=== PATIENT | male | born 1970 | race Caucasian/White ===

== ENCOUNTER → 2020-12-29 11:36 | Outpatient (CLI) | payer OTHER, SELFPAY ==
[2020-12-29 12:51] LABS: Cholesterol 221 mg/dL (140-199); HDL Cholesterol 86 mg/dL (40-60); LDL Cholesterol Calculated 119 mg/dL (<100); Triglycerides 82 mg/dL (35-150)
[2020-12-29 13:21] LABS: Prostate Specific Antigen Scrn 0.882 ng/mL (0.1-4.0)
[2020-12-29 13:39] LABS: Vitamin B12 269 pg/mL (239-931)
[2020-12-29 17:08] LABS: Vitamin D 25 Hydroxy (D3) 19.3 ng/mL (30.0-100.0)
== END ==
PROVIDERS: PCP Student in an Organized Health Care Education/Training Program; Referring Provider Student in an Organized Health Care Education/Training Program; Visit Provider Student in an Organized Health Care Education/Training Program
DX: Z13.220 Encounter for screening for lipoid disorders (principal); E55.9 Vitamin D deficiency, unspecified; Z12.5 Encounter for screening for malignant neoplasm of prostate; G62.9 Polyneuropathy, unspecified
CPT/HCPCS: 36415; 80061; 82306; 82607; G0103

== ENCOUNTER → 2021-03-13 09:52 | Outpatient (CLI) | payer OTHER, SELFPAY ==
[2021-03-13 10:43] LABS: COVID19 -Nasal RAPID Negative (Negative)
== END ==
PROVIDERS: PCP Student in an Organized Health Care Education/Training Program; Visit Provider Surgery
DX: Z20.822 Contact with and (suspected) exposure to COVID-19 (principal)
CPT/HCPCS: 87635; C9803

== ENCOUNTER 2021-03-16 08:57 | Day surgery (SDC) | payer OTHER, SELFPAY ==
[2021-03-16] MEDS: LACTATED RINGERS 1,000 ML 200 ML IV (09:17)
[2021-03-16 09:18] VITALS: BP 144/80; PULSE 65; RESP 18; TEMP 36.4; O2SAT 100; BMI 24.3
--- NOTE | 2021-03-16 10:20 | PM.HP.1 ---
History of Present Illness History of Present Illness Date Patient Seen: 03/16/21 Time Patient Seen: 10:20 Chief complaint: SDC Narrative: The patient presents for colorectal sreening. They have never had any previous examination for such. No personal or family history of colon cancer. On further history denies any recent gastrointestinal symptoms. No nausea, vomiting, abdominal pain, loss of appetite, unexplained weight loss, change in bowel habits, diarrhea, constipation, melena, hematochezia, or bright red blood per rectum. Patient History Medical History Abrasion of lower extremity with infection Family & Social History Social History: household members significant other Tobacco & Substance use: Smoking Status Former smoker alcohol intake current alcohol intake frequency 0-2 drinks per day Substance Use Type does not use Meds Home Medications and Allergies Home Medications Medication Instructions Recorded Confirmed Type No Known Home Medications 04/03/20 03/16/21 History Allergies Allergy/AdvReac Type Severity Reaction Status Date / Time No Known Drug Allergies Allergy Verified 03/16/21 09:15 Review of Systems Review of Systems ROS: Yes All systems reviewed with the patient and are negative except as otherwise documented Exam Vital Signs (past 8 hours): - 03/16/21 09:18 Temperature 97.5 F L Pulse Rate 65 Respiratory Rate 18 Blood Pressure 144/80 H Pulse Oximetry 100 Oxygen Delivery Method Room Air Narrative Exam Narrative: GENERAL-well developed adult male, no acute distress HEENT-no scleral icterus, hearing intact NECK-no JVD, trachea midline CVS- regular rate, no peripheral edema RESP-unlabored respiratory effort, no audible wheezing GI-soft, nontender nondistended MSK-no cyanosis or clubbing, extremities without deformity SKIN-warm, dry NEURO-alert and oriented, no focal deficits PYSCH-Appropriate mood and affect Assessment & Plan Assessment & Plan narrative: The patient requires colorectal screening and colonoscopy is recommended. Technical details were discussed. Risks, benefits, alternatives explained. Risks including but not limited to myocardial infarction, aspiration, bleeding, pain, missed lesion, incomplete examination, need for further radiographic studies, colonic perforation, and need for major abdominal surgery were discussed. All questions were answered to their satisfaction, and they are in agreement with this plan.
[2021-03-16] MEDS: fentaNYL 250 MCG/5 ML INJ IV (10:34)
[2021-03-16] MEDS: MIDAZOLAM 5 MG/5 ML VIAL IV (10:34)
--- NOTE | 2021-03-16 10:43 | PM.OP.ENDO ---
Operative Date/Time/Diagnoses Date of procedure: 03/16/21 Time of procedure: 10:43 Pre-op diagnosis: screening colonoscopy Post-op diagnosis: same Procedure & Clinicians Study performed: colonoscopy Same procedure as scheduled: Yes Indications: screening Surgeon: Mio Cervantes Procedure Notes Procedure in detail: Medications: Conscious sedation using 8mg IV midazolam and 200mcg IV of fentanyl The history and physical was performed/updated and the patient is ASA class is 1. The procedure was discussed in detail with the patient. Potential risks complications including infection, bleeding, missed diagnosis, perforation, need for surgery, and were explained. Their questions were answered and informed consent was obtained. Patient was brought to the procedure room and placed standard monitoring equipment. The patient's vital signs were monitored continuously throughout the entire procedure. Prior to starting time-out was performed. The patient was placed in the left lateral recumbent position. Procedural sedation was administered. Examination began with a thorough inspection of the perianal area there was no evidence of fissures, fistulae, external hemorrhoids or cutaneous malignancy. The colonoscopy scope was then placed into the anal canal and was advanced to the cecum, which was identified by the ileocecal valve, the appendiceal orifice and the confluence of the taenia. The scope was then slowly withdrawn examining colon thoroughly in all directions, irrigating it of any residual stool. FINDINGS 1. Normal healthy colon 2. No masses or polyps The patient tolerated the procedure well. They will be discharged once criteria are met. The prep was of good/excellent quality. The withdrawl time was 6 minutes. The sedation time was 18 minutes. Specimen(s): none sent Complications: none Impression: normal colonoscoy Post-procedure Recommendations: Colonscopy in 10 years Disposition: same day surgery
[2021-03-16 10:45] VITALS: BP 110/69; PULSE 58; RESP 10; TEMP 36.2; O2SAT 97
--- NOTE | 2021-03-16 10:46 | SUR.PHASEI ---
Received to PACU after colonoscopy with sedation. Report from JOSEY Sagastume.
[2021-03-16 10:50] VITALS: BP 101/64; PULSE 56; RESP 10; O2SAT 97
[2021-03-16 10:55] VITALS: BP 106/63; PULSE 57; RESP 12; O2SAT 99
[2021-03-16 11:00] VITALS: BP 114/73; PULSE 65; RESP 12; TEMP 36.4; O2SAT 98
[2021-03-16 11:07] VITALS: BP 121/70; PULSE 70; RESP 12; TEMP 36.4; O2SAT 99
== END 2021-03-16 11:16 | disposition home or self-care (01) ==
PROVIDERS: PCP Student in an Organized Health Care Education/Training Program; Referring Provider Surgery; Visit Provider Surgery
PROC: 0DJD8ZZ Inspection of Lower Intestinal Tract, Via Natural or Artificial Opening Endoscopic (ICD-10-PCS; CPT 45378; principal; 2021-03-16 10:00)
DX: Z12.11 Encounter for screening for malignant neoplasm of colon (principal)
CPT/HCPCS: 45378; 99152; J2250; J3010

== ENCOUNTER → 2024-01-18 08:20 | Outpatient (CLI) | payer OTHER, SELFPAY ==
[2024-01-18 09:07] LABS: Add Manual Diff / Slide Review NO; Basophils Absolute Auto 100 /uL (0-100); Basophils Percent Auto 2.2 % (0-2); Eosinophils Absolute Auto 300 /uL (0-450); Eosinophils Percent Auto 7.3 % (2-4); Hematocrit 45.1 % (41-53); Hemoglobin 15.5 g/dL (13.5-17.5); Lymphocytes Absolute Auto 1200 /uL (1100-4500); Lymphocytes Percent Auto 27.8 % (25-40); Mean Corpuscular HGB Conc 34.5 % (30-36); Mean Corpuscular Hemoglobin 30.4 PG (26-34); Mean Corpuscular Volume 88.2 fL (80-100); Monocytes Absolute Auto 500 /uL (0-900); Monocytes Percent Auto 12.1 % (3-14); Neutrophils Absolute Auto 2200 /uL (1500-7000); Neutrophils Percent Auto 50.6 % (50-75); Platelet Count 151 X10^3/uL (150-400); Red Blood Cell Count 5.11 X10^6/uL (4.5-5.9); Red Cell Distribution Width 13.5 % (11.6-14.8); White Blood Cell Count 4.4 X10^3/uL (4.5-11.0)
[2024-01-18 09:33] LABS: Alanine Aminotransferase 23 IU/L (<50); Albumin 4.5 g/dL (3.5-5.0); Albumin Globulin Ratio 1.8 (1.0-2.8); Alkaline Phosphatase 54 U/L (38-126); Aspartate Aminotransferase 30 IU/L (17-59); BUN Creatinine Ratio 15.9 (6-22); Bilirubin Total 0.8 mg/dL (0.2-1.3); Blood Urea Nitrogen 14 mg/dL (9-20); Calcium 9.1 mg/dL (8.4-10.2); Carbon Dioxide 28 mmol/L (22-32); Chloride 105 mmol/L (98-107); Cholesterol 220 mg/dL (140-199); Estimated Glomerular Filt Rate > 60 mL/min (>60); Globulin 2.5 g/dL (1.7-4.1); Glucose 109 mg/dL (70-100); HDL Cholesterol 89 mg/dL (40-60); HEMOLYSIS < 15 (0-50); LDL Cholesterol Calculated 113 mg/dL (<100); Potassium 4.7 mmol/L (3.4-5.1); Sodium 137 mmol/L (137-145); Triglycerides 89 mg/dL (35-150)
[2024-01-18 09:43] LABS: Vitamin D 25 Hydroxy (D3) 19.5 ng/mL (30.0-100.0)
[2024-01-18 09:56] LABS: TSH w/ Reflex to FT4 1.33 uIU/mL (0.47-4.68)
== END ==
PROVIDERS: PCP Family Medicine; Referring Provider Family Medicine; Visit Provider Family Medicine
DX: E78.2 Mixed hyperlipidemia (principal); E55.9 Vitamin D deficiency, unspecified; R00.2 Palpitations
CPT/HCPCS: 36415; 80053; 80061; 82306; 84443; 85025

== ENCOUNTER → 2024-01-20 08:15 | Outpatient (CLI) | payer OTHER, SELFPAY | LOC: RESP 08:16 | PROVIDERS: PCP Family Medicine; Referring Provider Family Medicine; Visit Provider Family Medicine | DX: R00.2 Palpitations (principal) | CPT/HCPCS: 93005; 93010 ==

== ENCOUNTER → 2024-03-07 13:43 | Outpatient (CLI) | payer OTHER, SELFPAY | LOC: CAR 13:44 | PROVIDERS: PCP Family Medicine; Referring Provider Family Medicine; Visit Provider Family Medicine | DX: R00.2 Palpitations (principal) | CPT/HCPCS: 93242 ==

== ENCOUNTER → 2024-08-27 07:42 | Outpatient (CLI) | payer OTHER, SELFPAY ==
--- NOTE | 2024-08-27 | DI.ECHO.S_ITS ---
[place] +---------+ Hospital : : [address] : : [place] : : [id number] : : Phone: [phone] Echocardiogram Report + + :Name: TAYA ELLINGTON Study Date: 08/27/2024 Height: 75 in : :Hospital ReadingLocation: Weight: 200 lb : : Gender: Male BSA: 2.2 m2 : :: 1970 Age: 54 yrs BP: 128/86 mmHg: :Reason For Study: FAMILY HISTORY OF ISCHEMIC HEART DISEASE : :Ordering Physician: WENDY PRINCE Performed By: aMry Guzman : :Referring: WENDY PRINCE : + + Interpretation Summary 1. The left ventricular contractility is mildly compromised. Estimate ejection fraction is approximately 45 to 50% with mild global hypokinesis. No LVH. Normal diastolic function. 2. The right ventricle contractility is normal. 3. Mild right ventricular enlargement. All other cardiac chambers are of normal size. 4. No significant valvular abnormalities noted. 5. No obvious intracardiac shunts. 6. No obvious intracardiac masses nor thrombi. 7. No hemodynamically significant pericardial effusion. 8. Low right-sided filling pressures. Conclusion: Mild left ventricular systolic dysfunction with no significant valvular abnormalities Procedure: A two-dimensional transthoracic echocardiogram with color flow and Doppler was performed. The study quality was technically adequate. There is no prior echocardiogram noted for this patient. The patient had occasional PVCs during the exam. The patient had a bundle branch block rhythm during the exam. The heart rate ranged between 69-81 bpm during the study. Left Ventricle: The left ventricle is normal in size and wall thickness. The ejection fraction is estimated to be 45-50%. There is mild global hypokinesis of the left ventricle. Right Ventricle: The right ventricle is mildly dilated. The right ventricular systolic function is normal. Atria: The left atrial size is normal. Right atrial size is normal. There is no Doppler evidence for an interatrial shunt. Mitral Valve: There is a flat closure plane of the the mitral valve leaflets. The mitral valve leaflets appear to open well. There is trace mitral regurgitation. Aortic Valve: The aortic valve is trileaflet. The aortic valve opens well. There is no aortic valve stenosis. No aortic regurgitation is present. Tricuspid Valve: The tricuspid valve leaflets are thin and pliable. No tricuspid regurgitation. Pulmonary artery pressures cannot be estimated because of the lack of a measurable TR jet velocity but the IVC suggests a CVP of around 3 mmHg. Pulmonic Valve: The pulmonic valve leaflets are thin and pliable; valve motion is normal. There is a trace or physiologic amount of pulmonic regurgitation. Great Vessels: The aortic root is normal size. The dimensions of the ascending aorta are normal. The IVC is of normal diameter and collapses greater than 50% with a sniff. This suggests a low right atrial pressure of 3 mm Hg. Pericardium/ Pleura There is no pericardial effusion. There is no pleural effusion. MMode/2D Measurements & Calculations LVIDd: 5.5 cm LVOT diam: 2.3 cm LVIDs: 3.8 cm Ao root diam: 2.9 cm FS: 31.7 % asc Aorta Diam: 3.0 cm EPSS: 0.43 cm Ao Arch Diam (Prox Trans): 2.6 cm IVSd: 0.75 cm LVPWd: 0.83 cm LV salazar. diameter/BSA (cm/m^2): 2.5 LV sys. diameter/BSA (cm/m^2): 1.7 LA A2 area: 21.0 cm2 RA long axis: 4.4 cm LA A4 area: 13.8 cm2 RA area: 12.0 cm2 LA length (vol): 5.0 cm RA vol: 27.6 ml LA vol: 49.5 ml RA : 12.6 ml/m2 LA vol index: 22.6 ml/m2 IVC diam: 1.2 cm RVD1 (basal): 4.4 cm RVD2 (mid): 3.2 cm TAPSE: 2.1 cm Doppler Measurements & Calculations Ao V2 max: 117.2 cm/sec LVOT Max Moshe: 85.1 cm/sec Ao V2 mean: 76.6 cm/sec LV V1 max P.9 mmHg Ao max P.5 mmHg LV V1 VTI: 17.1 cm Ao mean P.7 mmHg NATALEE(I,D): 2.9 cm2 Ao V2 VTI: 23.6 cm NATALEE(V,D): 2.9 cm2 sev ratio: 0.72 NATALEE indexed to BSA (cm^2/m^2): 1.3 MV E max moshe: 49.9 cm/sec PA V2 max: 122.5 cm/sec MV A max moshe: 47.4 cm/sec PA V2 mean: 86.2 cm/sec MV E/A: 1.1 PA mean P.3 mmHg Med Peak E' Moshe: 10.9 cm/sec PA pr(Accel): 41.3 mmHg E/E' med: 4.6 Lat Peak E' Moshe: 11.8 cm/sec E/E' lat: 4.2 E/e' average: 4.4 MV dec time: 0.20 sec SV(LVOT): 69.2 ml Reading Physician:
--- NOTE | 2024-08-27 16:59 | DI.NM.S_ITS ---
DATE OF SERVICE: 08/27/2024 EXERCISE TREADMILL STRESS TEST PROCEDURE: Exercise treadmill stress test without imaging. ORDERING PROVIDER: John Prince MD. INDICATIONS: The patient is a 54-year-old male with palpitations and frequent PVCs. FINDINGS: 1. The patient was able to exercise for 10 minutes 43 seconds on a standard Travis protocol suggesting good exercise capacity with an ADELSO of -9%, achieving 11.5 METS. 2. He had a normal heart rate response to exercise, achieving a maximum heart rate of 164 (99% of his predicted maximum). He had a borderline hypertensive blood pressure response with a resting blood pressure of 110/84, increasing to a maximum of 200/100. 3. He had no chest discomfort or other anginal symptoms. 4. His resting ECG shows sinus rhythm with occasional isolated PVCs but normal ST segments. With stress, there are no significant ST- segment shifts or arrhythmias except for continued occasional isolated PVCs with a similar frequency to that at rest, although with brief trigeminy in early recovery. No other complex or concerning ectopy seen. IMPRESSION: 1. Normal exercise treadmill stress test for ischemia. 2. Good exercise capacity without angina. He had occasional PVCs at rest that persisted through exercise and recovery without complex ventricular ectopy except brief ventricular trigeminy in early recovery, but no other arrhythmias. Larry Oconnor - KAILYN/montserrat/[employer] doc#: [id number]/job#: [id number] dd: 08/27/2024 16:38:00 dt: 08/27/2024 16:51:00 DICTATING MD/COPIES TO: Fili Wilkinson MD; John Prince MD COPIES MNE: AUGUSTIN;
== END ==
PROVIDERS: PCP Family Medicine; Referring Provider Internal Medicine; Visit Provider Internal Medicine
DX: I45.4 Nonspecific intraventricular block (principal); I49.3 Ventricular premature depolarization; Z82.49 Family history of ischemic heart disease and other diseases of the circulatory system
CPT/HCPCS: 93017; 93306

== ENCOUNTER → 2025-01-01 08:09 | Outpatient (CLI) | payer OTHER, SELFPAY ==
--- NOTE | 2025-01-01 08:09 | DI.ECHO.S_ITS ---
[place] +---------+ Hospital : : [address] : : [place] : : [id number] : : Phone: [phone] Echocardiogram Report + + :Name: TAYA ELLINGTON Study Date: 01/01/2025 Height: 76 in : :Hospital ReadingLocation: Weight: 200 lb : : Gender: Male BSA: 2.2 m2 : :: 1970 Age: 54 yrs BP: 122/78 mmHg: :Reason For Study: HEART FAILURE : :Ordering Physician: WENDY PRINCE Performed By: Ronny Yousif : :Referring: WENDY PRINCE : + + Interpretation Summary 1. The left ventricular contractility is mildly compromised. Estimate ejection fraction is 45-50% with mild global hypokinesis. No LVH. 2. The right ventricle was not well-visualized. 3. The left ventricle is borderline enlarged. 4. No significant valvular abnormalities appreciated. 5. No obvious intracardiac shunts. 6. No obvious intracardiac masses or thrombi. 7. No hemodynamically significant pericardial effusion. 8. Normal right-sided filling pressures. Conclusion: Mildly compromised left ventricular systolic function with no significant valvular abnormalities. When compared with previous echocardiogram, no change in left ventricular systolic function is noted. However the left ventricular cavity have increased in size. Procedure: A two-dimensional transthoracic echocardiogram with color flow and Doppler was performed in limited views only. The study quality was technically good. Comparison is made with the echocardiogram of 08/27/2024. The patient was in normal sinus rhythm during the exam. Left Ventricle: There is normal left ventricular wall thickness. The left ventricle is borderline dilated. The ejection fraction is estimated to be 45- 50%. Mitral Valve: The mitral valve leaflets appear normal. There is no evidence of stenosis, fluttering, or prolapse. There is no mitral regurgitation noted. Aortic Valve: The aortic valve is trileaflet. The aortic valve opens well. No aortic regurgitation is present. Tricuspid Valve: The tricuspid valve leaflets are thin and pliable. No tricuspid regurgitation. Pulmonic Valve: The pulmonic valve leaflets are thin and pliable; valve motion is normal. There is no pulmonic valvular regurgitation. Great Vessels: The IVC is dilated (diameter is greater than 2.1 cm) yet it collapses greater than 50% with a sniff. This suggests a right atrial pressure of 8 mm Hg. Pericardium/ Pleura There is no pericardial effusion. There is no pleural effusion. MMode/2D Measurements & Calculations LVIDd: 6.0 cm IVC diam: 2.8 cm LVIDs: 4.3 cm FS: 28.4 % IVSd: 0.87 cm LVPWd: 0.91 cm LV salazar. diameter/BSA (cm/m^2): 2.7 LV sys. diameter/BSA (cm/m^2): 1.9 Reading Physician:RODOLFO
== END ==
LOC: ECHO 08:09
PROVIDERS: PCP Family Medicine; Referring Provider Internal Medicine; Visit Provider Internal Medicine
DX: I50.22 Chronic systolic (congestive) heart failure (principal); I51.7 Cardiomegaly
CPT/HCPCS: 93307

== ENCOUNTER → 2025-01-30 07:54 | Outpatient (CLI) | payer OTHER, SELFPAY ==
[2025-01-30 09:27] LABS: Hematocrit 44.6 % (41-53); Hemoglobin 15.2 g/dL (13.5-17.5); Mean Corpuscular HGB Conc 34.1 % (30-36); Mean Corpuscular Hemoglobin 30.4 PG (26-34); Mean Corpuscular Volume 89.2 fL (80-100); Platelet Count 150 X10^3/uL (150-400); Red Cell Distribution Width 13.8 % (11.6-14.8); White Blood Cell Count 5.1 X10^3/uL (4.5-11.0)
[2025-01-30 09:58] LABS: Alanine Aminotransferase 18 IU/L (<50); Albumin 4.4 g/dL (3.5-5.0); Albumin Globulin Ratio 1.9 (1.0-2.8); Alkaline Phosphatase 48 U/L (38-126); Aspartate Aminotransferase 25 IU/L (17-59); BUN Creatinine Ratio 19.4 (6-22); Bilirubin Total 0.8 mg/dL (0.2-1.3); Blood Urea Nitrogen 18 mg/dL (9-20); Calcium 9.3 mg/dL (8.4-10.2); Carbon Dioxide 28 mmol/L (22-32); Chloride 104 mmol/L (98-107); Cholesterol 223 mg/dL (140-199); Estimated Glomerular Filt Rate > 60 mL/min (>60); Globulin 2.3 g/dL (1.7-4.1); Glucose 104 mg/dL (70-99); HDL Cholesterol 86 mg/dL (40-60); HEMOLYSIS < 15 (0-50); LDL Cholesterol Calculated 121 mg/dL (<100); Potassium 4.8 mmol/L (3.4-5.1); Sodium 138 mmol/L (137-145); Total Protein 6.7 g/dL (6.3-8.2); Triglycerides 80 mg/dL (35-150)
[2025-01-30 10:25] LABS: Prostate Specific Antigen Scrn 1.35 ng/mL (0.1-4.0)
[2025-01-31 17:44] LABS: HIV 1 & 2 Ab/Ag 4th Gen Combo NEGATIVE (NEGATIVE); Hep C Virus Ab w/Reflex Quant NEGATIVE s/c (NEGATIVE)
== END ==
PROVIDERS: PCP Family Medicine; Referring Provider Internal Medicine; Visit Provider Internal Medicine
DX: I50.22 Chronic systolic (congestive) heart failure (principal); Z13.9 Encounter for screening, unspecified; Z11.59 Encounter for screening for other viral diseases; Z11.4 Encounter for screening for human immunodeficiency virus [HIV]; Z12.5 Encounter for screening for malignant neoplasm of prostate; Z13.21 Encounter for screening for nutritional disorder; Z13.220 Encounter for screening for lipoid disorders
CPT/HCPCS: 36415; 80053; 80061; 82306; 85027; 86803; 87389; G0103